=== PATIENT | female | born 1990 | race Caucasian/White ===

== ENCOUNTER 2024-03-16 10:51 | Outpatient (CLI) | payer BC, SELFPAY ==
[2024-03-16 14:05] LABS: PCR FLU A Negative PCR FLU A (Negative); PCR FLU B Negative PCR FLU B (Negative); PCR RSV Negative PCR RSV (Negative); SARS PCR* Negative SARS-CoV-2 (Negative)
== END 2024-03-16 10:52 | disposition home or self-care (01) ==
PROVIDERS: PCP Family Medicine; Visit Provider Family Medicine
DX: J02.9 Acute pharyngitis, unspecified (principal); E55.9 Vitamin D deficiency, unspecified; R53.83 Other fatigue
CPT/HCPCS: 80048; 82306; 82607; 82728; 84443; 85025; 87631